=== PATIENT | female | born 1985 | race Caucasian/White ===

== ENCOUNTER 2019-08-10 22:25 | Emergency (ER) | payer SELFPAY ==
[~2019-08-10] VITALS: Ht 162.6 cm; Wt 69.4 kg
[2019-08-10 22:45] VITALS: Ht 162.6 cm; Wt 69.4 kg
[2019-08-11 01:21] VITALS: BP 132/89
== END 2019-08-11 01:21 | disposition home or self-care (01) ==
LOC: ED 22:25
DX: N90.7 Vulvar cyst (principal)
CPT/HCPCS: J1885